=== PATIENT | female | born 1955 ===

== ENCOUNTER 2024-04-04 09:00 | Inpatient (IN) | payer OTHER ==
[~2024-04-04] VITALS: Ht 152.4 cm; Wt 48.5 kg
[2024-04-04] MEDS ORDERED: HYDRODIURIL12.5 MG (10:33)
[2024-04-04] MEDS ORDERED: COZAAR25 MG (10:33)
[2024-04-04] MEDS ORDERED: GRALISE600 MG (10:34)
[2024-04-04] MEDS ORDERED: ATORVASTATIN CA40 MG (10:34)
[2024-04-04] MEDS ORDERED: TRAMADOL HCL E100 M1 (10:34)
[2024-04-04] MEDS ORDERED: CHILDREN'S ASPI81 MG (10:35)
[2024-04-04] MEDS ORDERED: ACID REDUCER20 M1 (10:35)
[2024-04-04] MEDS ORDERED: CLARITIN5 MG/5 ML (10:36)
[2024-04-04] MEDS ORDERED: PEPCID40 MG (10:36)
[2024-04-04] MEDS ORDERED: ZTLIDO1 EACH (10:36)
[2024-04-09] MEDS ORDERED: levoFLOXacin IN DEXTROSE 5 % 5 MG/ML PIGGYBAG IV ONE (12:43)
[2024-04-09] MEDS ORDERED: METRONIDAZOLE/SODIUM CHLORIDE 500 MG/100 ML PIGGYBACK IV ONE (12:43)
[2024-04-09] MEDS ORDERED: LIDOCAINE HCL 1%/EPINEPHRINE 20ML VIAL IJ ONE (13:25)
[2024-04-09] MEDS ORDERED: SUGAMMADEX SODIUM 200 MG/2 ML VIAL IV ONE (15:33)
[2024-04-09] MEDS ORDERED: FLONASE16 GM (15:38)
[2024-04-09] MEDS ORDERED: OMEPRAZOLE20 MG (15:38)
[2024-04-09] MEDS ORDERED: B-121000 MC2 (15:39)
[2024-04-09] MEDS ORDERED: VITAMIN D3250 MCG (15:39)
[2024-04-09] MEDS ORDERED: CALCIUM 600 MG1 EA11 (15:39)
[2024-04-09] MEDS ORDERED: DEXAMETHASONE4 MG (15:40)
[2024-04-09] MEDS ORDERED: DEXTROSE 50 % IN WATER 0.5 G/ML DISP.SYRIN IV PRN (16:15)
[2024-04-09] MEDS ORDERED: ONDANSETRON HCL 2 MG/ML VIAL IV PRN (16:15)
[2024-04-09] MEDS ORDERED: RINGERS SOLUTION,LACTATED 1,000 ML IV SCH (16:15)
[2024-04-09] MEDS ORDERED: MORPHINE SULFATE 4 MG/ML CARTRIDGE IV PRN (16:15)
[2024-04-09] MEDS ORDERED: OxyCODONE HCL 5 MG TABLET (ROXICODONE) PO PRN (16:15)
[2024-04-09] MEDS ORDERED: METOCLOPRAMIDE HCL 5 MG/ML VIAL ONE (16:27)
[2024-04-09] MEDS ORDERED: HYOSCYAMINE SULFATE 0.125 MG TAB.SUBL SL SCH (17:00)
[2024-04-09] MEDS ORDERED: METOCLOPRAMIDE HCL 5 MG/ML VIAL IV SCH (17:00)
[2024-04-09] MEDS ORDERED: SIMETHICONE 125 MG CAPSULE PO SCH (17:00)
[2024-04-09] MEDS ORDERED: POLYETHYLENE GLYCOL 3350 17 GM BLIST.PACK PO SCH (17:00)
[2024-04-09] MEDS ORDERED: GABAPENTIN 300 MG CAPSULE PO SCH (17:00)
[2024-04-09] MEDS ORDERED: ONDANSETRON HCL 2 MG/ML VIAL ONE (18:10)
[2024-04-09 18:18] LABS: HEMATOCRIT 35.8 % (36.0-45.00); HEMOGLOBIN 11.8 g/dL (12.0-15.00); MEAN CELL VOLUME 88.8 fL (80.00-100.00); MEAN CORPUSCULAR HEMOGLOBIN 29.4 pg (27.00-32.0); MEAN CORPUSCULAR HGB CONC 33.1 g/dl (32.0-36.0); PLATELET COUNT 273 K/uL (150-450); RED BLOOD COUNT 4.03 M/uL (4.00-6.00); RED CELL DISTRIBUTION WIDTH 14.7 % (11.5-14.5)
[2024-04-09 19:40] VITALS: BP 160/77; O2SAT 95
[2024-04-09] MEDS ORDERED: ACETAMINOPHEN 500 MG GEL..CAP PO SCH (20:00)
[2024-04-09] MEDS ORDERED: ACETAMINOPHEN 500 MG GEL..CAP PO ONE (20:16)
[2024-04-09] MEDS ORDERED: SIMETHICONE 125 MG CAPSULE PO ONE (20:16)
[2024-04-09] MEDS ORDERED: FAMOTIDINE/PF 20 MG/2 ML VIAL ONE (20:17)
[2024-04-09] MEDS ORDERED: FAMOTIDINE/PF 20 MG/2 ML VIAL IV PUSH SCH (21:00)
[2024-04-10 02:07] VITALS: BP 135/69; O2SAT 96
[2024-04-10 07:07] LABS: HEMOGLOBIN 10.7 g/dL (12.0-15.00); MEAN CORPUSCULAR HEMOGLOBIN 29.9 pg (27.00-32.0); MEAN CORPUSCULAR HGB CONC 34.4 g/dl (32.0-36.0); PLATELET COUNT 234 K/uL (150-450); RED BLOOD COUNT 3.57 M/uL (4.00-6.00)
[2024-04-10 08:27] LABS: ALBUMIN 2.7 gm/dL (3.4-5.0); CALCIUM 8.2 mg/dL (8.5-10.1); CREATININE SERUM 0.74 mg/dL (0.55-1.02); GFR 78.04; PHOSPHOROUS 3.5 mg/dL (2.5-4.9); POTASSIUM 4.15 mEq/L (3.5-5.1)
[2024-04-10 08:29] LABS: MAGNESIUM 1.4 mg/dL (1.8-2.4)
[2024-04-10 08:54] VITALS: BP 130/75; O2SAT 98
[2024-04-10] MEDS ORDERED: LOSARTAN POTASSIUM 50 MG TABLET PO SCH (09:00)
[2024-04-10] MEDS ORDERED: HYDROCHLOROTHIAZIDE 12.5 MG CAPSULE PO SCH (09:00)
[2024-04-10 10:22] VITALS: BP 116/76; O2SAT 99
[2024-04-10] MEDS ORDERED: MAGNESIUM SULFATE IN WATER 50 ML IV NR (13:00)
[2024-04-10] MEDS ORDERED: ENOXAPARIN SODIUM 40 MG/0.4 ML SYRINGE SUBCUTANEO SCH (17:00)
[2024-04-10] MEDS ORDERED: ATORVASTATIN CALCIUM 40 MG TABLET PO SCH (17:00)
[2024-04-10 17:41] VITALS: BP 131/78; O2SAT 97
[2024-04-11 00:40] VITALS: BP 130/77; O2SAT 97
[2024-04-11 07:37] LABS: HEMATOCRIT 31.4 % (36.0-45.00); HEMOGLOBIN 10.8 g/dL (12.0-15.00); MEAN CELL VOLUME 86.5 fL (80.00-100.00); MEAN CORPUSCULAR HEMOGLOBIN 29.8 pg (27.00-32.0); MEAN CORPUSCULAR HGB CONC 34.5 g/dl (32.0-36.0); PLATELET COUNT 253 K/uL (150-450); RED BLOOD COUNT 3.63 M/uL (4.00-6.00); RED CELL DISTRIBUTION WIDTH 15.2 % (11.5-14.5)
[2024-04-11 08:09] LABS: CALCIUM 8.8 mg/dL (8.5-10.1); CREATININE SERUM 0.83 mg/dL (0.55-1.02); GFR 68.36; MAGNESIUM 2.1 mg/dL (1.8-2.4); PHOSPHOROUS 2.1 mg/dL (2.5-4.9); POTASSIUM 3.68 mEq/L (3.5-5.1)
[2024-04-11] MEDS ORDERED: ENOXAPARIN SODIUM 40 MG/0.4 ML SYRINGE SUBCUTANEO SCH (09:00)
[2024-04-11 09:45] VITALS: BP 117/76; O2SAT 96
[2024-04-11] MEDS ORDERED: POTASSIUM PHOS,M-BASIC-D-BASIC 3 MM/ML VIAL IV ONE (13:00)
[2024-04-11] MEDS ORDERED: INTESTINEX680 M1 PO (14:14)
[2024-04-11] MEDS ORDERED: CELECOXIB200 MG PO (14:15)
[2024-04-11] MEDS ORDERED: LEVSIN/SL0.125 MG SL (14:16)
[2024-04-11 16:13] VITALS: BP 133/82; O2SAT 98
[2024-04-12 00:37] VITALS: BP 116/74; O2SAT 97
[2024-04-12 06:49] LABS: HEMATOCRIT 29.3 % (36.0-45.00); HEMOGLOBIN 10.2 g/dL (12.0-15.00); MEAN CORPUSCULAR HEMOGLOBIN 29.8 pg (27.00-32.0); MEAN CORPUSCULAR HGB CONC 34.7 g/dl (32.0-36.0); PLATELET COUNT 248 K/uL (150-450); RED BLOOD COUNT 3.41 M/uL (4.00-6.00); RED CELL DISTRIBUTION WIDTH 14.4 % (11.5-14.5)
[2024-04-12 07:37] LABS: ALBUMIN 2.6 gm/dL (3.4-5.0); BILIRUBIN TOTAL 0.73 mg/dL (0.3-1.2); CALCIUM 8.4 mg/dL (8.5-10.1); CREATININE SERUM 0.73 mg/dL (0.55-1.02); GFR 79.28; GLOBULINA 2.6 G/DL (2.4-3.5); POTASSIUM 3.91 mEq/L (3.5-5.1); TOTAL PROTEIN 5.2 gm/dL (6.4-8.2)
[2024-04-12 08:00] VITALS: BP 126/72; O2SAT 95
== END 2024-04-12 09:33 | disposition home or self-care (01) | DRG 331 ==
LOC: O/R 04-09 08:45 → SURH 04-09 08:45
PROVIDERS: Internal Medicine Geriatric Medicine; ADMIT Surgery; ATTEND Surgery
PROC: 0DBP4ZZ Excision of Rectum, Percutaneous Endoscopic Approach (ICD-10-PCS; 2024-04-09)
PROC: 0DJD8ZZ Inspection of Lower Intestinal Tract, Via Natural or Artificial Opening Endoscopic (ICD-10-PCS; 2024-04-09)
PROC: 0DTN4ZZ Resection of Sigmoid Colon, Percutaneous Endoscopic Approach (ICD-10-PCS; principal; 2024-04-09 16:45)
DX: K57.30 Diverticulosis of large intestine without perforation or abscess without bleeding (principal); K59.02 Outlet dysfunction constipation